=== PATIENT | male | born 1960 | race Caucasian/White ===

== ENCOUNTER 2020-09-17 22:04 | Emergency (ER) | payer BC, OTHER ==
[2020-09-17 22:17] VITALS: BP 218/117; PULSE 140
--- NOTE | 2020-09-17 22:25 | EDM.PDOC ---
ED HPI GENERAL MEDICAL PROBLEM - General Chief Complaint: Cardiovascular Problem Stated Complaint: RHB Time Seen by Provider: 09/17/20 22:19 Source of Information: Reports: Patient, RN Notes Reviewed - History of Present Illness INITIAL COMMENTS - FREE TEXT/NARRATIVE: 60 yr old male comes in with fast heart rate, he states he gets this many times per yr but typically with rest and time it stops. Tonight it has not stopped. No chest pain. Mildly short of breath with walking. Otherwise asymptomatic other than the palpitation awareness. He does not smoke. No known hx CAD or diabetes, or other known medical problems. - Related Data Allergies Allergy/AdvReac Type Severity Reaction Status Date / Time No Known Allergies Allergy Verified 09/17/20 22:14 Home Meds: Home Meds Diltiazem [Cardizem CD] 120 mg PO DAILY #30 cap.er 09/17/20 [Rx] Past Medical History Other Genitourinary History: vasectomy Social & Family History - Caffeine Use Caffeine Use: Reports: Coffee ED ROS GENERAL - Review of Systems Review Of Systems: See Below Constitutional: Denies: Fever, Chills, Diaphoresis HEENT: Reports: No Symptoms Respiratory: Reports: Shortness of Breath (gone). Denies: Cough Cardiovascular: Denies: Chest Pain GI/Abdominal: Denies: Abdominal Pain, Nausea, Vomiting Musculoskeletal: Denies: Shoulder Pain, Arm Pain Skin: Reports: No Symptoms Neurological: Reports: No Symptoms ED EXAM, GENERAL - Physical Exam Exam: See Below General Appearance: Alert, No Apparent Distress Eye Exam: Bilateral Eye: PERRL Throat/Mouth: Normal Inspection Head: Atraumatic Neck: Supple Respiratory/Chest: No Respiratory Distress, Lungs Clear, Normal Breath Sounds Cardiovascular: Tachycardia GI/Abdominal: Soft, Non-Tender. No: Guarding Back Exam: No: CVA Tenderness (L), CVA Tenderness (R) Extremities: Normal Inspection. No: Pedal Edema, Leg Pain, Increased Warmth, Redness Skin Exam: Warm, Dry, Normal Color #1 Interpretation EKG Date: 09/17/20 Rhythm: Other (narrow complex tachycardia) P-Wave: Absent (no definitive p waves) QRS: Other (q waves lead III) ST-T: Normal Course - Vital Signs Last Recorded V/S: Last Vital Signs Temp 97.0 F 09/17/20 22:15 Pulse 140 H 09/17/20 22:15 Resp 16 09/17/20 22:15 BP 218/117 H 09/17/20 22:15 Pulse Ox 100 09/17/20 22:15 - Orders/Labs/Meds Orders: Active Orders 24 hr Category Date Time Status Peripheral IV Insertion Adult [OM.PC] Stat Oth 09/17/20 22:35 Ordered Labs: Laboratory Tests 09/17/20 09/17/20 Range/Units 22:20 22:20 WBC 9.90 H (4.23-9.07) K/mm3 RBC 5.37 (4.63-6.08) M/mm3 Hgb 11.1 L (13.7-17.5) gm/dl Hct 36.3 L (40.1-51.0) % MCV 67.6 L (79.0-92.2) fl MCH 20.7 L (25.7-32.2) pg MCHC 30.6 L (32.2-35.5) g/dl RDW Std Deviation 45.0 H (35.1-43.9) fL Plt Count 342 H (163-337) K/mm3 MPV 8.5 L (9.4-12.3) fl Neut % (Auto) 50.3 (34.0-67.9) % Lymph % (Auto) 33.9 (21.8-53.1) % Lucas % (Auto) 11.4 (5.3-12.2) % Eos % (Auto) 3.4 (0.8-7.0) Baso % (Auto) 0.8 (0.1-1.2) % Neut # (Auto) 4.97 (1.78-5.38) K/mm3 Lymph # (Auto) 3.36 (1.32-3.57) K/mm3 Lucas # (Auto) 1.13 H (0.30-0.82) K/mm3 Eos # (Auto) 0.34 (0.04-0.54) K/mm3 Baso # (Auto) 0.08 (0.01-0.08) K/mm3 Manual Slide Review Abnormal smear Sodium 135 L (136-145) mEq/L Potassium 3.8 (3.5-5.1) mEq/L Chloride 97 L (98-107) mEq/L Carbon Dioxide 24 (21-32) mEq/L Anion Gap 17.8 H (5-15) BUN 5 L (7-18) mg/dL Creatinine 0.9 (0.7-1.3) mg/dL Est Cr Clr Drug Dosing 87.28 mL/min Estimated GFR (MDRD) > 60 (>60) mL/min BUN/Creatinine Ratio 5.6 L (14-18) Glucose 129 H (74-106) mg/dL Calcium 9.6 (8.5-10.1) mg/dL Total Bilirubin 0.4 (0.2-1.0) mg/dL AST 49 H (15-37) U/L ALT 50 (16-63) U/L Alkaline Phosphatase 60 (46-116) U/L Total Protein 8.0 (6.4-8.2) g/dl Albumin 3.9 (3.4-5.0) g/dl Globulin 4.1 gm/dL Albumin/Globulin Ratio 1.0 (1-2) Meds: Medications Discontinued Medications Generic Name Dose Route Start Last Admin Trade Name Myrna PRN Reason Stop Dose Admin Adenosine 6 mg 09/17/20 22:36 09/17/20 22:40 Adenocard IVPUSH 09/17/20 22:37 6 mg NOW ONE Administration Sodium Chloride 1,000 mls @ 999 mls/hr 09/17/20 22:45 09/17/20 22:43 Normal Saline IV 999 mls/hr ONETIME ABBE Administration Sodium Chloride 10 ml 09/17/20 22:35 09/17/20 22:43 Saline Flush FLUSH 10 ml ASDIRECTED PRN Administration Keep Vein Open - Re-Assessments/Exams Free Text/Narrative Re-Assessment/Exam: 09/17/20 22:55 No definite p waves on EKG, narrow complex tachycardia that continued with rate mostly in the 140's. Tried valsalva with no change. Gave adenosine 6 mg IV and he promptly converted to Sinus Tach, rate 110-114. Rate now 105. Tolerated procedure well. 09/18/20 00:15. Labs relatively OK. BP readings have been in the 16/100 range. He has not seen a provider for a long time. He needs to get established with a provider, have a complete physical and have someone to provide ongoing care. Will start him on relatively low dose cardizem 120 CD daily. Discharge instr. as documented. Departure - Departure Time of Disposition: 23:55 Disposition: Home, Self-Care 01 Condition: Fair Clinical Impression: SVT (supraventricular tachycardia), Hypertension Prescriptions: Diltiazem [Cardizem CD] 120 mg PO DAILY #30 cap.er Instructions: Supraventricular Tachycardia, Adult, Hypertension, Adult Referrals: PCP,None [Primary Care Provider] - Forms: ED Department Discharge Additional Instructions: Cardizem 120 mg daily. Prescription has been sent to [facility], you can pick that up and start that tomorrow morning. Eat a cardiac healthy diet. With the warmer weather get out and walk, try exercise more at least 4 to 5 times a week. See a medical provider at clinic of your choice in the next 7 to 14 days for complete physical, and for further medical care. Get a BP unit, check your blood pressure and pulse once or twice daily, keep a record for your medical provider. Return to ED as needed. Sepsis Event Note (ED) - Evaluation Sepsis Screening Result: No Definite Risk - Focused Exam Vital Signs: Vital Signs Temp Pulse Resp BP Pulse Ox 09/17/20 22:15 97.0 F 140 H 16 218/117 H 100 - My Orders Last 24 Hours: My Active Orders 09/17/20 22:35 Peripheral IV Insertion Adult [OM.PC] Stat - Assessment/Plan Last 24 Hours: My Active Orders 09/17/20 22:35 Peripheral IV Insertion Adult [OM.PC] Stat
[2020-09-17] MEDS ORDERED: Sodium Chloride 0.9% 10 ML Syringe FLUSH PRN (22:35)
[2020-09-17] MEDS ORDERED: Adenosine 6 MG/2 ML SDV IVPUSH ONE (22:36)
[2020-09-17] MEDS ORDERED: Sodium Chloride 0.9% 1,000 ML IV SCH (22:45)
== END 2020-09-18 00:04 | disposition home or self-care (01) ==
LOC: JD.ED 22:04
DX: I47.1 Supraventricular tachycardia (principal); I10 Essential (primary) hypertension
CPT/HCPCS: 36415; 80053; 85025; 93005; 96374; 99285; J0153; J7030; 93010; 99284

== ENCOUNTER 2020-09-26 09:59 | Emergency (ER) | payer BC ==
[2020-09-26] MEDS ORDERED: hydrALAZINE 20 MG/ML SDV IVPUSH ONE ×2 (10:23→11:10)
--- NOTE | 2020-09-26 10:31 | EDM.PDOC ---
ED HPI GENERAL MEDICAL PROBLEM - General Chief Complaint: Cardiovascular Problem Stated Complaint: HIGH BLOOD PRESSURE Time Seen by Provider: 09/26/20 10:08 Source of Information: Reports: Patient History Limitations: Reports: No Limitations, Other (ED vital signs reveal a temp of 97.5, pulse of 91, respiratory rate of 16, blood pressure 269/111, pulse ox 100% on room air.) - History of Present Illness INITIAL COMMENTS - FREE TEXT/NARRATIVE: 60-year-old male who presents to the emergency department after being seen and for his initial visit with his primary care provider at [facility] this morning. Patient's blood pressure at [facility] was 268/120. So he was sent here to have his blood pressure brought down. Patient was recently seen in the emergency department on 09/17/2020 with complaints of SVT. He states he is been having an issue with this since he was in his 40s however he can usually vagal down to convert it, however he did require 1 dose of adenosine that day. Blood pressure on 09/17/2020 was elevated so he was started on diltiazem and 120 mg that day. The patient states he has been taking this daily as prescribed however he has still remained hypertensive. Patient is completely asymptomatic with this elevated blood pressure. He denies any chest pain/pressure, shortness of breath, he has had no further episodes of SVT since he was last seen and treated in the emergency department, no syncope or near syncope, no headache or blurred vision or double vision. He denies smoking states he quit about 20 years ago. And drinks minimal caffeine. - Related Data Allergies Allergy/AdvReac Type Severity Reaction Status Date / Time No Known Allergies Allergy Verified 09/17/20 22:14 Home Meds: Home Meds Diltiazem [Cardizem CD] 120 mg PO DAILY #30 cap.er 09/17/20 [Rx] Metoprolol Succinate [Toprol XL 50mg] 50 mg PO BEDTIME #20 tab.er 09/26/20 [Rx] lisinopriL [Lisinopril] 10 mg PO DAILY #20 tablet 09/26/20 [Rx] Past Medical History Cardiovascular History: Reports: Afib Other Genitourinary History: vasectomy Social & Family History - Tobacco Use Tobacco Use Status *Q: Former Tobacco User Used Tobacco, but Quit: Yes Month/Year Tobacco Last Used: 07/2010 - Caffeine Use Caffeine Use: Reports: Coffee, Tea - Alcohol Use Days Per Week of Alcohol Use: 7 Number of Drinks Per Day: 2 Total Drinks Per Week: 14 - Recreational Drug Use Recreational Drug Use: No ED ROS GENERAL - Review of Systems Review Of Systems: Comprehensive ROS is negative, except as noted in HPI. ED EXAM, GENERAL - Physical Exam Exam: See Below Exam Limited By: No Limitations General Appearance: Alert, WD/WN, No Apparent Distress Eye Exam: Bilateral Eye: PERRL Ears: Normal External Exam, Hearing Grossly Normal Nose: Normal Inspection Throat/Mouth: Normal Inspection, Normal Lips, Normal Voice, No Airway Compromise Head: Atraumatic, Normocephalic Neck: Normal Inspection, Supple, Non-Tender, Full Range of Motion Respiratory/Chest: No Respiratory Distress, Lungs Clear, Normal Breath Sounds, No Accessory Muscle Use, Chest Non-Tender Cardiovascular: Normal Peripheral Pulses, Regular Rate, Rhythm, No Edema, No Murmur Peripheral Pulses: 2+: Radial (L), Radial (R) GI/Abdominal: Normal Bowel Sounds, Soft, Non-Tender, No Distention (Male) Exam: Deferred Rectal (Males) Exam: Deferred Back Exam: Normal Inspection, Full Range of Motion Extremities: Normal Inspection, Normal Range of Motion, Non-Tender, No Pedal Edema, Normal Capillary Refill Neurological: Alert, Oriented, Normal Cognition Psychiatric: Normal Affect, Normal Mood Skin Exam: Warm, Dry, Intact, Normal Color, No Rash Lymphatic: No Adenopathy #1 Interpretation EKG Date: 09/26/20 Time: 10:12 Rhythm: NSR Rate (Beats/Min): 86 Delta: Normal P-Wave: Present QRS: Normal ST-T: Normal QT: Normal EKG Interpretation Comments: Per Dr. Culver interpretation: sinus rhythm 86, baseline wander in lead V2 Course - Vital Signs Text/Narrative:: 60-year-old male who presents to the emergency department after a visit with his primary care physician this morning. Patient's visit at [facility] this morning he had a blood pressure of 268/120. So he was sent to the emergency department to have this treated. Upon assessment patient denies being symptomatic of his hypertension. He denies any chest pain/pressure, shortness of breath headache, blurred vision or double vision. States he is not affected by this as he has been running up and down the stairs several times this morning. States he feels healthy and well. Patient was recently seen in the emergency department on 09/17/2020 for SVT and was started on Cardizem 120 mg on that date. He states he has been taking it daily as prescribed however it has had no effect on his blood pressure. I have ordered labs, EKG, and for the patient to receive 1 dose of hydralazine 10 mg IV x1. Patient has refused chest x-ray today. Goal is to get the blood pressure less than 200 systolic and then I will consult with his primary care physician, Dr. Ortiz to see what med changes he would like. Last Recorded V/S: Last Vital Signs Temp 97.5 F 09/26/20 10:11 Pulse 86 09/26/20 11:17 Resp 16 09/26/20 10:11 BP 203/83 H 09/26/20 11:17 Pulse Ox 100 09/26/20 11:17 - Orders/Labs/Meds Orders: Active Orders 24 hr Category Date Time Status EKG Documentation Completion [RC] STAT Care 09/26/20 10:23 Active Labs: Laboratory Tests 09/26/20 09/26/20 Range/Units 10:18 10:18 WBC 7.96 (4.23-9.07) K/mm3 RBC 5.15 (4.63-6.08) M/mm3 Hgb 10.6 L (13.7-17.5) gm/dl Hct 34.8 L (40.1-51.0) % MCV 67.6 L (79.0-92.2) fl MCH 20.6 L (25.7-32.2) pg MCHC 30.5 L (32.2-35.5) g/dl RDW Std Deviation 45.0 H (35.1-43.9) fL Plt Count 348 H (163-337) K/mm3 MPV 8.2 L (9.4-12.3) fl Neut % (Auto) 67.8 (34.0-67.9) % Lymph % (Auto) 16.6 L (21.8-53.1) % Custer % (Auto) 13.3 H (5.3-12.2) % Eos % (Auto) 1.1 (0.8-7.0) Baso % (Auto) 0.9 (0.1-1.2) % Neut # (Auto) 5.40 H (1.78-5.38) K/mm3 Lymph # (Auto) 1.32 (1.32-3.57) K/mm3 Custer # (Auto) 1.06 H (0.30-0.82) K/mm3 Eos # (Auto) 0.09 (0.04-0.54) K/mm3 Baso # (Auto) 0.07 (0.01-0.08) K/mm3 Manual Slide Review Abnormal smear Sodium 135 L (136-145) mEq/L Potassium 4.0 (3.5-5.1) mEq/L Chloride 97 L (98-107) mEq/L Carbon Dioxide 25 (21-32) mEq/L Anion Gap 17.0 H (5-15) BUN 5 L (7-18) mg/dL Creatinine 0.8 (0.7-1.3) mg/dL Est Cr Clr Drug Dosing 98.19 mL/min Estimated GFR (MDRD) > 60 (>60) mL/min BUN/Creatinine Ratio 6.3 L (14-18) Glucose 106 (74-106) mg/dL Calcium 9.4 (8.5-10.1) mg/dL Magnesium 1.9 (1.8-2.4) mg/dl Total Bilirubin 0.8 (0.2-1.0) mg/dL AST 75 H (15-37) U/L ALT 64 H (16-63) U/L Alkaline Phosphatase 53 (46-116) U/L Troponin I 0.035 (0.00-0.056) ng/mL Total Protein 8.0 (6.4-8.2) g/dl Albumin 4.0 (3.4-5.0) g/dl Globulin 4.0 gm/dL Albumin/Globulin Ratio 1.0 (1-2) Meds: Medications Discontinued Medications Generic Name Dose Route Start Last Admin Trade Name Freq PRN Reason Stop Dose Admin Hydralazine HCl 10 mg 09/26/20 10:23 09/26/20 10:33 Apresoline IVPUSH 09/26/20 10:24 10 mg ONETIME ONE Administration Hydralazine HCl 10 mg 09/26/20 11:10 09/26/20 11:13 Apresoline IVPUSH 09/26/20 11:11 10 mg ONETIME ONE Administration - Re-Assessments/Exams Free Text/Narrative Re-Assessment/Exam: 09/26/20 11:13 Pt's blood pressure is still 214/89. I had only given him 10mg hydralazine. Discussed the case with Dr. Culver who agrees that I could give a second dose of 10mg Hydralazine. I have ordered this. The patient is annoyed that he has to stay to be monitored but I did discuss the fact that we cannot safely bring his blood pressure down too quickly as this could have detrimental effects. He is agreeable to this plan. 09/26/20 11:16 Labs reveal a WBC of 7.96, hemoglobin 10.6, hematocrit 34.8, MCV 67.6, sodium 135, potassium 4.0, chloride 97, anion gap 17.0, BUN 5, creatinine 0.8, glucose 106, magnesium 1.9, AST 75, ALT 64, alk phos 53, troponin is 0.035 09/26/20 11:48 Patient's blood pressure currently 175/70. I spoke with Dr. Ortiz regarding what medication regimen he would like him to be started on as the patient is currently taking Cardizem 120 mg daily. He recommends the patient be started on Toprol-XL 50 mg daily and lisinopril 10 mg daily. He requests that he start 1 of these medications this evening. Patient will be discharged home. Departure - Departure Time of Disposition: 11:55 Disposition: Home, Self-Care 01 Condition: Fair Clinical Impression: Hypertension Qualifiers: Hypertension type: unspecified Qualified Code(s): I10 - Essential (primary) hypertension Prescriptions: lisinopriL [Lisinopril] 10 mg PO DAILY #20 tablet Metoprolol Succinate [Toprol XL 50mg] 50 mg PO BEDTIME #20 tab.er Instructions: Hypertension, Adult, [id number] Referrals: Raffy Ortiz MD [Primary Care Provider] - Forms: ED Department Discharge Additional Instructions: You were seen in the emergency department today with significantly elevated blood pressure. You were sent from your primary care provider to have this treated. You were given 2 doses of medication in your IV to bring your blood pressure down slowly. I spoke with Dr. Ortiz regarding what medications he would like you to be taking upon discharge from the emergency department. He request that you be started on Toprol-XL 50 mg daily and lisinopril 10 mg daily. These meds need to be taken in addition to the Cardizem 120 mg you are currently taking. Begin taking your Toprol XL this evening at bedtime. And then take your regularly scheduled Cardizem tomorrow morning and take lisinopril 10 mg in the morning. Continue checking your blood pressures at home and keep a log of this to bring to your next appointment with Dr. Ortiz. Follow-up with Dr. Ortiz as scheduled. Should you develop, headache, blurred vision, double vision, chest pain, shortness of breath or stroke type of symptoms, you need to return to the emergency room immediately. Sepsis Event Note (ED) - Evaluation Sepsis Screening Result: No Definite Risk - Focused Exam Vital Signs: Vital Signs Temp Pulse Resp BP Pulse Ox 09/26/20 11:17 86 203/83 H 100 09/26/20 10:11 97.5 F 91 16 269/111 H 100 - My Orders Last 24 Hours: My Active Orders 09/26/20 10:23 EKG Documentation Completion [RC] STAT - Assessment/Plan Last 24 Hours: My Active Orders 09/26/20 10:23 EKG Documentation Completion [RC] STAT
[2020-09-26 11:17] VITALS: PULSE 86
[2020-09-26 12:21] VITALS: BP 156/73
== END 2020-09-26 12:18 | disposition home or self-care (01) ==
LOC: JD.ED 09:59
DX: I10 Essential (primary) hypertension (principal); I48.91 Unspecified atrial fibrillation; Z87.891 Personal history of nicotine dependence; Z79.899 Other long term (current) drug therapy
CPT/HCPCS: 36415; 80053; 83735; 84484; 85025; 93005; 93010; 96374; 96376; 99283-25; 99284; J0360

== ENCOUNTER 2023-11-19 23:28 | Inpatient (IN) | payer BC ==
[2023-11-20] MEDS: Lidocaine 1% 10 ML MDV INJECT ONE (00:03)
[2023-11-20 00:17] LABS: BASOPHILS ABSOLUTE AUTO 0.1 K/mm3 (0.0-0.2); BASOPHILS PERCENT AUTO 0.8 % (0.0-1.0); EOSINOPHILS ABSOLUTE AUTO 1.1 K/mm3 (0.0-0.4); EOSINOPHILS PERCENT AUTO 8.5 % (0.0-6.0); HEMATOCRIT 28.6 % (42.0-52.0); HEMOGLOBIN 8.5 gm/dl (14.0-18.0); IMMATURE GRAN ABSOLUTE AUTO 0.09 K/mm3 (0.00-0.05); IMMATURE GRAN PERCENT AUTO 0.7 % (0.0-0.4); LYMPHOCYTES ABSOLUTE AUTO 2.8 K/mm3 (1.0-4.8); LYMPHOCYTES PERCENT AUTO 21.2 % (24.0-44.0); MEAN CORPUSCULAR HGB CONC 29.7 g/dl (32.0-36.0); MEAN CORPUSCULAR VOLUME 63.8 fl (83.0-99.0); MEAN PLATELET VOLUME 8.4 fl (9.4-12.4); MONOCYTES ABSOLUTE AUTO 0.9 K/mm3 (0.0-0.8); MONOCYTES PERCENT AUTO 7.2 % (0.0-8.0); NEUTROPHILS PERCENT AUTO 61.6 % (41.0-71.0); PLATELET COUNT,PLT 235 K/mm3 (150-400); RED BLOOD CELL COUNT 4.48 M/mm3 (4.52-5.90)
[2023-11-20 00:31] LABS: A/G RATIO 0.8 (1-2); ALBUMIN 3.2 g/dl (3.4-5.0); ANION GAP 20.1 (5-15); BILIRUBIN TOTAL 0.7 mg/dL (0.2-1.0); BUN/CREATININE RATIO 11.3 (14-18); CALCIUM 9.1 mg/dL (8.5-10.1); CREATININE 0.8 mg/dL (0.7-1.3); EST CRCL DRUG DOSING (CG) 94.51 mL/min; MAGNESIUM 1.4 mg/dL (1.8-2.4); POTASSIUM,K 3.1 mEq/L (3.5-5.1); PROTEIN TOTAL,TP 7.1 g/dl (6.4-8.2)
[2023-11-20 00:47] LABS: APPEARANCE,URINE CLEAR (Clear); BILIRUBIN,URINE NEGATIVE (Negative); COLOR,URINE YELLOW (Yellow); GLUCOSE,URINE NEGATIVE (Negative); KETONES,URINE NEGATIVE (Negative); LEUKOCYTE ESTERASE,URINE NEGATIVE (Negative); NITRITE,URINE NEGATIVE (Negative); OCCULT BLOOD,URINE NEGATIVE (Negative); PROTEIN,URINE NEGATIVE (Negative)
[2023-11-20 00:56] LABS: SLIDE REVIEW ABNORMAL SMEAR
[2023-11-20] MEDS ORDERED: Magnesium Sulfate (4.06 MEQ/ML) 5 GM/10 ML SDV IV ONE (01:43)
[2023-11-20] MEDS: Sodium Chloride 0.9% 1,000 ML IV SCH (01:57)
[2023-11-20] MEDS: Magnesium Sulfate/Water 2 GM in Premix Bag 1 BAG IV ONE (01:58)
[2023-11-20] MEDS: Potassium Chloride 20 MEQ Tab.ER PO ONE (02:01)
[2023-11-20 04:59] LABS: BASOPHILS ABSOLUTE AUTO 0.1 K/mm3 (0.0-0.2); BASOPHILS PERCENT AUTO 0.7 % (0.0-1.0); EOSINOPHILS ABSOLUTE AUTO 0.7 K/mm3 (0.0-0.4); EOSINOPHILS PERCENT AUTO 5.9 % (0.0-6.0); HEMATOCRIT 27.7 % (42.0-52.0); HEMOGLOBIN 8.3 gm/dl (14.0-18.0); IMMATURE GRAN ABSOLUTE AUTO 0.12 K/mm3 (0.00-0.05); LYMPHOCYTES ABSOLUTE AUTO 2.2 K/mm3 (1.0-4.8); LYMPHOCYTES PERCENT AUTO 18.7 % (24.0-44.0); MEAN CORPUSCULAR HEMOGLOBIN 18.9 pg (28.0-32.0); MEAN CORPUSCULAR VOLUME 63.1 fl (83.0-99.0); MEAN PLATELET VOLUME 8.1 fl (9.4-12.4); MONOCYTES ABSOLUTE AUTO 0.7 K/mm3 (0.0-0.8); MONOCYTES PERCENT AUTO 5.9 % (0.0-8.0); NEUTROPHILS PERCENT AUTO 67.8 % (41.0-71.0); PLATELET COUNT,PLT 224 K/mm3 (150-400); RED BLOOD CELL COUNT 4.39 M/mm3 (4.52-5.90); WHITE BLOOD CELL COUNT,WBC 11.85 K/mm3 (3.9-11.3)
[2023-11-20 05:21] LABS: ANION GAP 16.3 (5-15); BUN/CREATININE RATIO 12.9 (14-18); CALCIUM 9.1 mg/dL (8.5-10.1); CREATININE 0.7 mg/dL (0.7-1.3); EST CRCL DRUG DOSING (CG) 108.01 mL/min; POTASSIUM,K 3.3 mEq/L (3.5-5.1)
[2023-11-20 06:28] LABS: SLIDE REVIEW ABNORMAL SMEAR
[2023-11-20] MEDS: Diltiazem 120 MG Cap.CD PO SCH (08:52)
[2023-11-20] MEDS: Heparin Sodium 5,000 Units/ML Vial SUBCUT SCH (08:52)
[2023-11-20] MEDS: Metoprolol Succinate 50 MG Tab.ER PO SCH (21:02)
[2023-11-20] MEDS: Thiamine 100 MG Tab PO SCH (21:02)
[2023-11-20] MEDS ORDERED: Aluminum Hydroxide/Magnesium Hydroxide/Simethicone Susp 30 ML Cup PO PRN (23:25)
[2023-11-21 06:48] LABS: BASOPHILS ABSOLUTE AUTO 0.1 K/mm3 (0.0-0.2); BASOPHILS PERCENT AUTO 0.7 % (0.0-1.0); EOSINOPHILS ABSOLUTE AUTO 0.8 K/mm3 (0.0-0.4); EOSINOPHILS PERCENT AUTO 9.4 % (0.0-6.0); HEMATOCRIT 26.6 % (42.0-52.0); HEMOGLOBIN 7.8 gm/dl (14.0-18.0); IMMATURE GRAN ABSOLUTE AUTO 0.05 K/mm3 (0.00-0.05); IMMATURE GRAN PERCENT AUTO 0.6 % (0.0-0.4); LYMPHOCYTES ABSOLUTE AUTO 1.7 K/mm3 (1.0-4.8); LYMPHOCYTES PERCENT AUTO 19.4 % (24.0-44.0); MEAN CORPUSCULAR HEMOGLOBIN 19.2 pg (28.0-32.0); MEAN CORPUSCULAR HGB CONC 29.3 g/dl (32.0-36.0); MEAN CORPUSCULAR VOLUME 65.5 fl (83.0-99.0); MEAN PLATELET VOLUME 8.5 fl (9.4-12.4); MONOCYTES ABSOLUTE AUTO 0.7 K/mm3 (0.0-0.8); MONOCYTES PERCENT AUTO 8.6 % (0.0-8.0); NEUTROPHILS ABSOLUTE AUTO 5.2 K/mm3 (1.8-7.7); NEUTROPHILS PERCENT AUTO 61.3 % (41.0-71.0); PLATELET COUNT,PLT 211 K/mm3 (150-400); RED BLOOD CELL COUNT 4.06 M/mm3 (4.52-5.90); WHITE BLOOD CELL COUNT,WBC 8.52 K/mm3 (3.9-11.3)
[2023-11-21 07:09] LABS: A/G RATIO 0.8 (1-2); ALBUMIN 2.8 g/dl (3.4-5.0); ANION GAP 14.5 (5-15); BILIRUBIN TOTAL 0.6 mg/dL (0.2-1.0); BUN/CREATININE RATIO 8.6 (14-18); CALCIUM 8.5 mg/dL (8.5-10.1); CREATININE 0.7 mg/dL (0.7-1.3); EST CRCL DRUG DOSING (CG) 108.01 mL/min; MAGNESIUM 1.8 mg/dL (1.8-2.4); POTASSIUM,K 3.5 mEq/L (3.5-5.1); PROTEIN TOTAL,TP 6.2 g/dl (6.4-8.2)
[2023-11-21] MEDS: Folic Acid 1 MG Tab PO SCH (08:12)
[2023-11-21 10:25] LABS: SLIDE REVIEW ABNORMAL SMEAR
[2023-11-21 13:23] VITALS: BP 121/94; PULSE 68
== END 2023-11-21 12:34 | disposition home or self-care (01) | DRG 426 ==
LOC: JD.ED 23:28 → JD.MS 11-20 01:00
PROVIDERS: ADMIT Internal Medicine; ATTEND Internal Medicine
PROC: 0HQ1XZZ Repair Face Skin, External Approach (ICD-10-PCS; principal; 2023-11-20)
DX: E87.1 Hypo-osmolality and hyponatremia (principal); D72.829 Elevated white blood cell count, unspecified; E87.20 Acidosis, unspecified; G31.9 Degenerative disease of nervous system, unspecified; F10.10 Alcohol abuse, uncomplicated; D50.9 Iron deficiency anemia, unspecified; M10.9 Gout, unspecified; I10 Essential (primary) hypertension; S01.112A Laceration without foreign body of left eyelid and periocular area, initial encounter; I48.91 Unspecified atrial fibrillation; E87.8 Other disorders of electrolyte and fluid balance, not elsewhere classified; E87.6 Hypokalemia; F17.210 Nicotine dependence, cigarettes, uncomplicated; Z98.52 Vasectomy status; W19.XXXA Unspecified fall, initial encounter; Y92.009 Unspecified place in unspecified non-institutional (private) residence as the place of occurrence of the external cause
CPT/HCPCS: 36415; 70450; 70450-26; 80048; 80053; 80307; 81003; 83735; 84295; 85025; 93005; 99222; 99239; A9270-GY; J1644; J3475; J3490; J7030

== ENCOUNTER 2023-12-22 23:47 | Emergency (ER) | payer BC ==
[2023-12-23] MEDS ORDERED: Sodium Chloride 0.9% 10 ML Syringe FLUSH PRN (00:22)
[2023-12-23] MEDS: Diltiazem 25 MG/5 ML SDV IVPUSH ONE (00:36)
[2023-12-23] MEDS: Diltiazem 120 MG Cap.CD PO ONE (00:58)
[2023-12-23 01:33] VITALS: BP 113/79; PULSE 98
== END 2023-12-23 01:41 | disposition home or self-care (01) ==
LOC: JD.ED 23:47
DX: I47.19 Other supraventricular tachycardia (principal); I10 Essential (primary) hypertension; Z79.899 Other long term (current) drug therapy
CPT/HCPCS: 93005; 96374; 99284; A9270; J3490

== ENCOUNTER 2024-12-23 12:44 | Inpatient (IN) | payer BC ==
[2024-12-23] MEDS ORDERED: Sodium Chloride 0.9% 10 ML Syringe FLUSH PRN (12:49)
[2024-12-23 13:06] LABS: BASOPHILS PERCENT AUTO 0.2 % (0.0-1.0); EOSINOPHILS ABSOLUTE AUTO 0.9 K/mm3 (0.0-0.4); EOSINOPHILS PERCENT AUTO 4.7 % (0.0-6.0); IMMATURE GRAN PERCENT AUTO 1.1 % (0.0-0.4); LYMPHOCYTES ABSOLUTE AUTO 2.5 K/mm3 (1.0-4.8); LYMPHOCYTES PERCENT AUTO 13.7 % (24.0-44.0); MEAN CORPUSCULAR HEMOGLOBIN 17.9 pg (28.0-32.0); MEAN CORPUSCULAR HGB CONC 27.6 g/dl (32.0-36.0); MEAN CORPUSCULAR VOLUME 64.9 fl (83.0-99.0); MEAN PLATELET VOLUME 9.2 fl (9.4-12.4); MONOCYTES ABSOLUTE AUTO 1.1 K/mm3 (0.0-0.8); MONOCYTES PERCENT AUTO 6.3 % (0.0-8.0); NEUTROPHILS ABSOLUTE AUTO 13.3 K/mm3 (1.8-7.7); NRBC PERCENT 0.6 % (0.0-0.2); RED BLOOD CELL COUNT 2.62 M/mm3 (4.52-5.90); WHITE BLOOD CELL COUNT,WBC 17.96 K/mm3 (3.9-11.3)
[2024-12-23 13:11] LABS: PLATELET COUNT,PLT 370 K/mm3 (150-400)
[2024-12-23 13:12] LABS: HEMOGLOBIN 4.7 gm/dl (14.0-18.0)
[2024-12-23] MEDS: Sodium Chloride 0.9% 1,000 ML IV SCH ×3 (13:15→17:05)
[2024-12-23 13:21] LABS: INR 1.18; PROTHROMBIN TIME 12.4 SECONDS (9.7-12.0)
[2024-12-23 13:27] LABS: A/G RATIO 0.6 (1-2); ALBUMIN 2.7 g/dl (3.4-5.0); ANION GAP 14.4 (5-15); BILIRUBIN TOTAL 1.2 mg/dL (0.2-1.0); BUN/CREATININE RATIO 20.5 (14-18); CREATININE 1.9 mg/dL (0.7-1.3); EST CRCL DRUG DOSING (CG) 39.28 mL/min; PROTEIN TOTAL,TP 7.2 g/dl (6.4-8.2)
[2024-12-23 13:28] LABS: SLIDE REVIEW ABNORMAL SMEAR
[2024-12-23 13:32] LABS: POTASSIUM,K 2.4 mEq/L (3.5-5.1)
[2024-12-23] MEDS: Potassium Chloride 20 MEQ Tab.ER PO ONE ×2 (13:38→16:43)
[2024-12-23] MEDS: Potassium Chloride 10 MEQ in Premix Bag 1 BAG IV ONE (13:39)
[2024-12-23] MEDS ORDERED: Acetaminophen 325 MG Tab PO PRN (15:20)
[2024-12-23] MEDS ORDERED: Ondansetron 4 MG/2 ML SDV IV PRN (15:20)
[2024-12-23] MEDS: Sodium Chloride 0.9% 500 ML IV SCH (15:33)
[2024-12-23] MEDS ORDERED: Sodium Chloride 0.9% 1,000 ML IV SCH (15:45)
[2024-12-23] MEDS: Potassium Chloride 10 MEQ in Premix Bag 1 BAG IV SCH (16:42)
[2024-12-23] MEDS ORDERED: LORazepam 2 MG/ML SDV IV PRN ×2 (17:18)
[2024-12-23 20:09] LABS: HEMATOCRIT 22.9 % (42.0-52.0)
[2024-12-23 20:19] LABS: HEMOGLOBIN 6.6 gm/dl (14.0-18.0)
[2024-12-23] MEDS: Metoprolol Succinate 50 MG Tab.ER PO SCH (20:58)
[2024-12-23 22:15] LABS: APPEARANCE,URINE CLEAR (Clear); BILIRUBIN,URINE NEGATIVE (Negative); COLOR,URINE YELLOW (Yellow); GLUCOSE,URINE NEGATIVE (Negative); KETONES,URINE NEGATIVE (Negative); LEUKOCYTE ESTERASE,URINE NEGATIVE (Negative); NITRITE,URINE NEGATIVE (Negative); OCCULT BLOOD,URINE NEGATIVE (Negative); PROTEIN,URINE NEGATIVE (Negative); UROBILINOGEN,URINE 0.2 (0.2-1.0)
[2024-12-24 05:36] LABS: BASOPHILS PERCENT AUTO 0.2 % (0.0-1.0); EOSINOPHILS ABSOLUTE AUTO 0.9 K/mm3 (0.0-0.4); EOSINOPHILS PERCENT AUTO 4.8 % (0.0-6.0); HEMATOCRIT 26.3 % (42.0-52.0); HEMOGLOBIN 7.9 gm/dl (14.0-18.0); IMMATURE GRAN ABSOLUTE AUTO 0.11 K/mm3 (0.00-0.05); IMMATURE GRAN PERCENT AUTO 0.6 % (0.0-0.4); MEAN CORPUSCULAR HEMOGLOBIN 21.8 pg (28.0-32.0); MEAN PLATELET VOLUME 9.1 fl (9.4-12.4); MONOCYTES PERCENT AUTO 5.5 % (0.0-8.0); NEUTROPHILS ABSOLUTE AUTO 14.2 K/mm3 (1.8-7.7); NEUTROPHILS PERCENT AUTO 77.9 % (41.0-71.0); NRBC PERCENT 0.6 % (0.0-0.2); PLATELET COUNT,PLT 303 K/mm3 (150-400); RED BLOOD CELL COUNT 3.62 M/mm3 (4.52-5.90); WHITE BLOOD CELL COUNT,WBC 18.16 K/mm3 (3.9-11.3)
[2024-12-24 05:38] LABS: A/G RATIO 0.6 (1-2); ALBUMIN 2.4 g/dl (3.4-5.0); ANION GAP 13.1 (5-15); BILIRUBIN TOTAL 1.9 mg/dL (0.2-1.0); BUN/CREATININE RATIO 23.1 (14-18); CALCIUM 8.5 mg/dL (8.5-10.1); CREATININE 1.3 mg/dL (0.7-1.3); EST CRCL DRUG DOSING (CG) 57.41 mL/min; POTASSIUM,K 3.1 mEq/L (3.5-5.1); PROTEIN TOTAL,TP 6.6 g/dl (6.4-8.2)
[2024-12-24 05:45] LABS: IRON,FE 66 ug/dL (65-175); TRANSFERRIN 258 mg/dL (202-364)
[2024-12-24 05:46] LABS: PERCENT FE SATURATION 20 % (20-55); TOTAL IRON BINDING CAPACITY 323 ug/dL (100-400)
[2024-12-24 05:53] LABS: MEAN CORPUSCULAR VOLUME 72.7 fl (83.0-99.0)
[2024-12-24] MEDS: atorvaSTATin 40 MG Tab PO SCH (08:24)
[2024-12-24] MEDS: Bumetanide 1 MG Tab PO SCH (09:06)
[2024-12-24] MEDS: Potassium Chloride 20 MEQ Tab.ER PO ONE (09:06)
[2024-12-24 11:46] LABS: HEMATOCRIT 28.6 % (42.0-52.0); HEMOGLOBIN 8.5 gm/dl (14.0-18.0)
[2024-12-24 12:56] VITALS: BP 120/67; PULSE 60
[2024-12-24] MEDS ORDERED: Potassium Chloride 20 MEQ Tab.ER PO SCH (21:00)
[2024-12-24] MEDS ORDERED: Thiamine 100 MG Tab PO SCH (21:00)
== END 2024-12-24 13:26 | disposition home or self-care (01) | DRG 422 ==
LOC: JD.ED 12:44 → JD.ICU 15:20
PROVIDERS: ADMIT Family Medicine; ATTEND Family Medicine
PROC: 30233N1 Transfusion of Nonautologous Red Blood Cells into Peripheral Vein, Percutaneous Approach (ICD-10-PCS; principal; 2024-12-23)
DX: E87.6 Hypokalemia (principal); D62 Acute posthemorrhagic anemia; I50.32 Chronic diastolic (congestive) heart failure; N17.9 Acute kidney failure, unspecified; D68.32 Hemorrhagic disorder due to extrinsic circulating anticoagulants; K92.2 Gastrointestinal hemorrhage, unspecified; E87.1 Hypo-osmolality and hyponatremia; I47.10 Supraventricular tachycardia, unspecified; E86.0 Dehydration; I73.9 Peripheral vascular disease, unspecified; T45.515A Adverse effect of anticoagulants, initial encounter; I11.0 Hypertensive heart disease with heart failure; E87.8 Other disorders of electrolyte and fluid balance, not elsewhere classified; E86.1 Hypovolemia; F10.90 Alcohol use, unspecified, uncomplicated; G31.9 Degenerative disease of nervous system, unspecified; I48.91 Unspecified atrial fibrillation; G25.81 Restless legs syndrome; E78.5 Hyperlipidemia, unspecified; Z79.899 Other long term (current) drug therapy; Z95.828 Presence of other vascular implants and grafts; Z95.2 Presence of prosthetic heart valve; Z98.52 Vasectomy status; Z79.82 Long term (current) use of aspirin; Z79.01 Long term (current) use of anticoagulants; Y92.89 Other specified places as the place of occurrence of the external cause
CPT/HCPCS: 36415; 36430; 70450; 70450-26; 71045; 71045-26; 80053; 81003; 82272; 83540; 83735; 84466; 84484; 85014; 85018; 85025; 85610; 86850; 86900; 86901; 86922; 93005; 93010; 96361; 96365; 99223; 99239; 99284; 99285-25; A9270-GY; J3480; J7030; J7040; P9016